=== PATIENT | female | born 1980 | race Caucasian/White ===

== ENCOUNTER 2023-06-23 18:06 | Emergency (ER) | payer OTHER ==
[2023-06-23 18:38] VITALS: BP 128/85; PULSE 93; RESP 16; TEMP 99; BMI 25.2
[2023-06-23] MEDS ORDERED: predniSONE 20 MG TABLET (UD) PO ONE (19:25)
[2023-06-23] MEDS ORDERED: KETOROLAC TROMETHAMINE 30 MG/1 ML VIAL IM ONE (19:27)
[2023-06-23] MEDS ORDERED: KETOROLAC TROMETHAMINE 30 MG/1 ML VIAL ONE (19:29)
[2023-06-23] MEDS ORDERED: predniSONE 20 MG TABLET (UD) ONE (19:29)
== END 2023-06-23 19:46 | disposition home or self-care (01) ==
LOC: FER 18:06
PROC: 3E0233Z Introduction of Anti-inflammatory into Muscle, Percutaneous Approach (ICD-10-PCS; principal; 2023-06-23)
DX: M54.2 Cervicalgia (principal); M54.12 Radiculopathy, cervical region
CPT/HCPCS: 99284-25